=== PATIENT | male | born 1960 ===

== ENCOUNTER 2021-02-21 12:25 | Inpatient (IN) | payer BC ==
[2021-05-01] VITALS (9 sets, daily range): BP systolic 142–172; BP diastolic 61–70; PULSE 59–71; TEMP 97.2–98.3
--- NOTE | 2021-05-01 10:37 | NUR ---
PT AMBULATED TO BAY 3 WITHOUT DIFFICULTY. VS OBATINED. VSS. LUNGS CTA. BS PRESENT. 18G IV IN L HAND. ORIENTED PT TO ROOM AND CALL LIGHT. PREOP CLEANSE COMPLETED. PT VERBALIZED UNDERSTANDING. WILL CONTINUE TO MONITOR PT. PT DENIES ANY NEEDS AT THIS TIME. AT BEDSIDE.
[2021-05-01] MEDS ORDERED: PROTONIX20 MG PO (11:30)
[2021-05-01] MEDS ORDERED: VICTOZA6 MG/ML SQ (11:31)
[2021-05-01] MEDS ORDERED: LASIX 20MG TABL20 MG PO (11:32)
[2021-05-01] MEDS ORDERED: NEURONTIN300 MG/CAP PO (11:33)
[2021-05-01] MEDS ORDERED: TRESIBA FL200 UNIT/1 SQ (11:33)
[2021-05-01] MEDS ORDERED: FARXIGA10 PO (11:34)
[2021-05-01] MEDS ORDERED: ZOCOR 20MG20 MG PO (11:35)
[2021-05-01] MEDS ORDERED: GLUCOPHAGE1000 MG PO (11:35)
[2021-05-01] MEDS ORDERED: LOPRESSOR 225 MG/TAB PO (11:36)
[2021-05-01] MEDS ORDERED: COZAAR100 MG PO (11:38)
[2021-05-01] MEDS ORDERED: INSULIN AS100 UNIT/3 SQ (11:39)
[2021-05-01] MEDS ORDERED: FLEXERIL 1010 MG/TAB PO (11:41)
[2021-05-01] MEDS ORDERED: EPA FISH OIL1 SGL PO (11:41)
[2021-05-01] MEDS ORDERED: MELATONIN5 M1 PO (11:42)
[2021-05-01] MEDS ORDERED: TYLENOL 500MG500 MG PO (11:43)
[2021-05-01] MEDS ORDERED: PHARMASSURE ZIN50 MG PO (11:45)
[2021-05-01] MEDS ORDERED: ASPIRIN 81M81 MG/TA2 PO (11:45)
[2021-05-01] MEDS ORDERED: VITAMIND3 5000 PO (11:46)
[2021-05-01] MEDS ORDERED: VITAMIN B12 681 TAB PO (11:47)
[2021-05-01] MEDS ORDERED: VITAMINC500CH (11:49)
[2021-05-01] MEDS ORDERED: FERROUS SU325 MG/TAB PO (11:49)
[2021-05-01] MEDS ORDERED: FOLIC ACID 40400 MCG PO (11:50)
[2021-05-01] MEDS ORDERED: TURMERIC500 MG PO (11:51)
[2021-05-01] MEDS ORDERED: VITAMINC1000TA (11:53)
[2021-05-01] MEDS ORDERED: OSTEO-BI-FLEX 21 TAB PO (11:53)
[2021-05-01] MEDS ORDERED: ESTER C PO (11:59)
--- NOTE | 2021-05-01 17:31 | NUR ---
PT TO ROOM 329 PER BED WITH REPORT FROM ANTONIA VASQUEZ PACU @3645. VSS, PT IS A/O X3 LUNGS CTA, BOWEL SOUNDS PRESENT. DRESSING TO LEFT HIP CDI WITH BULKY OCCLUSIVE TAPE OVER INCISION. TEDS AND SCDS BILATERALLY. PEDAL PULSES PRESENT. IV TO LH. PO PAIN MEDS GIVEN FOR PAIN 11/13. PT WILL HAVE A MODERATE DOSE SS INSULIN.
--- NOTE | 2021-05-01 20:00 | NUR ---
SEE MAR FOR MS GIVEN AT 192 FOR UNRELIEVED LT HIP PAIN. REPOSITIONED FOR COMFORT. PT GETTING SOME RELIEF WITH MS AT THIS TIME. CALL LIGHT IN REACH.
--- NOTE | 2021-05-01 22:00 | NUR ---
SET UP HOME CPAP FOR PT.
[2021-05-02] VITALS (7 sets, daily range): BP systolic 125–142; BP diastolic 50–65; PULSE 67–85; TEMP 98–98.8
--- NOTE | 2021-05-02 04:44 | NUR ---
PT HASN'T VOIDED YET TONIGHT. WILL BLADDER SCAN.
--- NOTE | 2021-05-02 05:17 | NUR ---
BLADDER SCANNED WITH 1000CC. CALLED LIU CURRAN. NEW ORDER TO STRAT CATH.
--- NOTE | 2021-05-02 05:18 | NUR ---
STRAT CATH WITH 1100CC OUTPUT. PT FEELS RELIEF
[2021-05-02 06:38] LABS: HEMATOCRIT 41.3 % (42.0-52.0); HEMOGLOBIN 13.6 g/dl (13.5-18.0)
--- NOTE | 2021-05-02 08:17 | NUR ---
Patient is resting in bed. Alert and oriented X4. Vital signs within normal limits. Tramadol adminstered due to upcoming PT appointment, currently rates pain 3/10 when still but a 8/10 when moving. Dressing change left hip incision completed. Incision is CD&I and well approximated. Patient denies any needs at this time. Call light within reach.
--- NOTE | 2021-05-02 10:33 | NUR ---
Patient worked with PT and OT, ambulated, went to the restroom and was upin chair. Patient currently resting in bed, spouse at the bedside. Patient rates pain at 6/10 after PT/OT. PRN pain medication given. Patient denies any other complaints at this time. Call light within reach.
--- NOTE | 2021-05-02 13:12 | NUR ---
[employer] Special [employer] Teacher and SW student met with patient to discuss discharge planning. Patient lives in [place] with his , Kelsy (ph#[phone]) and sees Vaishali Cherry APRN for primary care. Patient obtains medications from [facility] in [place] with no difficulties and uses a home cpap. Patient has a four wheeled walker and reports he normally does not need it and is independent with ADLS. Patient does not have Advance Directives and is not interested in setting up DPOA-HC at this time. Patient plans to return home upon discharge. Discharge Plan: Home
--- NOTE | 2021-05-02 13:29 | NUR ---
Patient working with PT. An is steady but slow. Patient is due for PRN pain medication at approximately 1400.
--- NOTE | 2021-05-02 15:09 | NUR ---
Initial visit; Patient and his thanked Economic Research Analyst for looking in on him. Economic Research Analyst visited with them and offered blessings and a good recovery.
--- NOTE | 2021-05-02 20:53 | NUR ---
SEE MAR FOR PAIN MED GIVEN. ASSISTED WITH WALKER TO BR. VOIDED THEN TO RECLINER. CALL LIGHT IN REACH.
[2021-05-03 04:27] VITALS: BP 145/55; PULSE 74; TEMP 98.7
[2021-05-03 07:58] VITALS: BP 126/55; PULSE 69; TEMP 98.1
--- NOTE | 2021-05-03 08:22 | NUR ---
Patient sitting in chair, watching television. Tolerating oral fluids and food well. Patient is A&Ox3. Vital signs are within normal limits. Morning medication pass and a full body assessment was completed. Patient complains of difficulty passing stool, PRN milk of magnesia adminstered. Patient does not have any other complaints at this time. Call light within reach.
[2021-05-03] MEDS ORDERED: ASPI325T6 PO (11:27)
[2021-05-03] MEDS ORDERED: ULTRAM 50MG TAB50 MG PO (11:28)
[2021-05-03] MEDS ORDERED: ROXICODONE 55 MG/TAB PO (11:28)
[2021-05-03] MEDS ORDERED: SENOKOT S 50 MG1 TAB PO (11:29)
[2021-05-03 13:00] VITALS: BP 111/51; PULSE 64; TEMP 97.4
--- NOTE | 2021-05-03 14:00 | NUR ---
PATIENT DISCHARGING HOME VIA WC TO PERSONAL VEHICLE WITH . GAVE DISCHARGE INSTRUCTIONS, E-SCRIPTS SENT, AND DISCUSSED F/U APT. ANSWERED QUESTIONS/CONCERNS. PCT DC'D IV SITE AND COVERED WITH GAUZE [employer] COBAN. PATIENT IS DRESSED, PACKED AND DISCHARGED.
== END 2021-05-03 14:00 | disposition home or self-care (01) | DRG 470 ==
LOC: SURG 04-29 10:00 → INPTSU 05-01 10:16 → SURG 05-01 17:00
PROVIDERS: ADMIT Orthopaedic Surgery
PROC: 0SRB04Z Replacement of Left Hip Joint with Ceramic on Polyethylene Synthetic Substitute, Open Approach (ICD-10-PCS; principal; 2021-05-01 12:30)
DX: M16.12 Unilateral primary osteoarthritis, left hip (principal); I25.10 Atherosclerotic heart disease of native coronary artery without angina pectoris; E11.9 Type 2 diabetes mellitus without complications; E66.01 Morbid (severe) obesity due to excess calories; R33.9 Retention of urine, unspecified
CPT/HCPCS: A4314; C1713; C1776; J0690; J1170; J1815; J2250; J2270; J2405; J2704; J3010; J7030; J7042